=== PATIENT | female | born 1950 | race Caucasian/White ===

== ENCOUNTER 2023-10-07 07:52 | Outpatient (CLI) | payer MEDICARE, OTHER, SELFPAY ==
--- NOTE | 2023-10-07 08:15 | XR_ITS ---
WS: [id number] Left knee, 4 views, 10/07/2023 Clinical Data: L KNEE PAIN Comparison: None. Findings: No fractures or dislocations are seen. Mild bilateral joint space narrowing is seen. There is a small spur of the posterior superior left patella. The soft tissues are unremarkable. XR/XR knee LT 4V [id number] Impression: Minimal bilateral joint space narrowing and small posterior left patellar spur. Kellgren-Nic Classification: grade 1 (doubtful): doubtful joint space narr owing and possible osteophytic lipping
== END 2023-10-07 07:53 | disposition home or self-care (01) ==
LOC: RAD 08:00
PROVIDERS: PCP Nurse Practitioner Family; Visit Provider Nurse Practitioner Family
DX: M25.762 Osteophyte, left knee (principal); M25.562 Pain in left knee
CPT/HCPCS: 73564